=== PATIENT | male | born 1955 | race American Indian/Alaskan Native ===

== ENCOUNTER 2017-01-11 08:29 | Outpatient (CLI) | payer BC ==
[2017-01-11] MEDS ORDERED: NACL ONE (11:28)
--- NOTE | 2017-01-11 11:59 | Cat Scan Report ---
CT scan of abdomen and pelvis with IV contrast: History: Malignant neoplasm of prostate. Findings: Normal lung bases. No pleural pericardial effusion. Normal liver spleen pancreas and gallbladder. Normal adrenals, kidneys and bladder. Enlarged prostate measures 5.5 x 5.6 cm. Extrinsic pressure on the base of the bladder. No free intraperitoneal fluid or air. No evidence of adenopathy. Normal appendix. No evidence of diverticulitis. Gaseous colon with moderate volume stool in colon. No bowel distention. Right inguinal hernia containing fat measuring 3 cm in diameter. No definite bony metastatic disease. Impression: Enlarged prostate. Right inguinal hernia containing fat.
--- NOTE | 2017-01-11 14:17 | Nuclear Medicine Report ---
BONE SCAN: Prostate malignancy. After injection of isotope, gamma camera imaging of the bony system was done. There is a normal uptake of isotope throughout the bony structures without areas of significantly increased or decreased uptake. Normal uptake in the urinary system is seen. IMPRESSION: Normal bone scan.
== END 2017-01-11 08:30 | disposition home or self-care (01) ==
LOC: NM 08:29
DX: C61 Malignant neoplasm of prostate (principal); N40.0 Benign prostatic hyperplasia without lower urinary tract symptoms; K40.90 Unilateral inguinal hernia, without obstruction or gangrene, not specified as recurrent
CPT/HCPCS: 74177; 78306; A9503